=== PATIENT | female | born 1980 | race Two or more races ===

== ENCOUNTER 2017-05-27 15:36 | Emergency (ER) | payer SELFPAY ==
[~2017-05-27] VITALS: Ht 162.6 cm; Wt 81.6 kg
[2017-05-27 16:05] VITALS: BP 100/69
[2017-05-27] MEDS ORDERED: diphenhydrAMINE 50 MG/ML VIAL IVP ONE (16:15)
[2017-05-27] MEDS ORDERED: IV NORMAL SALINE 1000ML BAG 1,000 ML IV ONE (16:15)
[2017-05-27] MEDS ORDERED: PROCHLORPERAZINE 10 MG/2 ML VIAL. IV ONE (16:15)
[2017-05-27 16:31] LABS: BASO % 1 % (0-3); EOS % 1 % (0-3); HEMATOCRIT 27.2 % (36.0-47.0); HEMOGLOBIN 8.5 g/dL (12.0-15.5); LYMPH # 2.1 x10^3/uL (1.0-4.8); LYMPH % 40 % (24-48); MEAN CORPUSCULAR HEMOGLOBIN 23 pg (25-35); MEAN CORPUSCULAR HGB CONC 31 g/dL (31-37); MEAN CORPUSCULAR VOLUME 73 fL (79-100); MONO % 7 % (0-9); NEUT % 52 % (31-73); PLATELET COUNT 249 x10^3/uL (140-400); RED BLOOD COUNT 3.72 x10^6/uL (3.50-5.40); RED CELL DISTRIBUTION WIDTH 16.3 % (11.5-14.5); WHITE BLOOD COUNT 5.2 x10^3/uL (4.0-11.0)
[2017-05-27 16:33] LABS: BILIRUBIN,URINE NEGATIVE (NEG); GLUCOSE,URINE NEGATIVE (NEG); NITRITE,URINE NEGATIVE (NEG); PROTEIN,URINE NEGATIVE (NEG-TRACE); UROBILINOGEN,URINE 0.2 mg/dL (0.2 mg/dL)
[2017-05-27 16:36] LABS: NEG OBC UR NEG; POS OBC UR POS
--- NOTE | 2017-05-27 16:36 | PHYS DOC ---
Past Medical History Past Medical History: Hypothyroid Additional Past Medical Histor: HEADACHES Past Surgical History: , Tubal ligation Alcohol Use: None Drug Use: None Adult General Chief Complaint Chief Complaint: HEADACHE HPI HPI Patient is a 36 year old female with history of migraine headaches who presents today with with a 6 out of 10 posterior and frontal headache that began 2 days ago. Patient is also complaining of nausea vomiting and photophobia. Patient is also complaining of tingling on her left upper extremity and left lower extremity intermittently since this morning, patient denies any trauma. Patient denies this being the worst headache in her life but states this headache is different from her normal migraine headaches. Review of Systems Review of Systems Constitutional: Denies fever or chills [] Eyes: Denies change in visual acuity, redness, or eye pain [] HENT: Denies nasal congestion or sore throat [] Respiratory: Denies cough or shortness of breath [] Cardiovascular: No additional information not addressed in HPI [] GI: nausea, vomiting, : Denies dysuria or hematuria [] Musculoskeletal: Denies back pain or joint pain [] Integument: Denies rash or skin lesions [] Neurologic: headache, Endocrine: Denies polyuria or polydipsia [] Current Medications Current Medications Current Medications Medications (Trade) Dose Ordered Sig/Leena Start Time Stop Time Status Last Admin Dose Admin Ceftriaxone Sodium 50 ml @ 100 mls/hr 1X ONCE 05/27/17 17:15 05/27/17 17:44 Diphenhydramine HCl (Benadryl) 25 mg 1X ONCE 05/27/17 16:15 05/27/17 16:16 DC 05/27/17 17:03 25 MG Ketorolac Tromethamine (Toradol) 30 mg 1X ONCE 05/27/17 17:15 05/27/17 17:16 DC Prochlorperazine Edisylate (Compazine) 10 mg 1X ONCE 05/27/17 16:15 05/27/17 16:16 DC 05/27/17 17:03 10 MG Sodium Chloride 1,000 ml @ 1,000 mls/hr 1X ONCE 05/27/17 16:15 05/27/17 17:14 DC 05/27/17 17:03 1,000 MLS/HR Allergies Allergies Allergies Coded Allergies Type Severity Reaction Last Updated Verified No Known Drug Allergies 07/31/14 No Physical Exam Physical Exam Constitutional: Well developed, well nourished, no acute distress, non-toxic appearance. [] HENT: Normocephalic, atraumatic, bilateral external ears normal, oropharynx moist, no oral exudates, nose normal. [] Eyes: PERRLA, EOMI, conjunctiva normal, no discharge. [] Neck: Normal range of motion, no tenderness, supple, no stridor. [] Cardiovascular:Heart rate regular rhythm, no murmur [] Lungs & Thorax: Bilateral breath sounds clear to auscultation [] Abdomen: Bowel sounds normal, soft, no tenderness, no masses, no pulsatile masses. [] Skin: Warm, dry, no erythema, no rash. [] Back: No tenderness, no CVA tenderness. [] Extremities: No tenderness, no cyanosis, no clubbing, ROM intact, no edema. [] Neurologic: Alert and oriented X 3, normal motor function, normal sensory function, no focal deficits noted. Cranial nerves II-XII intact Psychologic: Affect normal, judgement normal, mood normal. [] Current Patient Data Vital Signs Vital Signs Date Time Temp Pulse Resp B/P (MAP) Pulse Ox O2 Delivery O2 Flow Rate FiO2 05/27/17 16:05 98.2 68 18 100/69 (79) 98 Room Air 98.2 Lab Values Laboratory Tests Test 05/27/17 16:10 05/27/17 16:22 Urine Test Negative (NEG) White Blood Count 5.2 x10^3/uL (4.0-11.0) Red Blood Count 3.72 x10^6/uL (3.50-5.40) Hemoglobin 8.5 g/dL (12.0-15.5) L Hematocrit 27.2 % (36.0-47.0) L Mean Corpuscular Volume 73 fL (79-100) L Mean Corpuscular Hemoglobin 23 pg (25-35) L Mean Corpuscular Hemoglobin Concent 31 g/dL (31-37) Red Cell Distribution Width 16.3 % (11.5-14.5) H Platelet Count 249 x10^3/uL (140-400) Neutrophils (%) (Auto) 52 % (31-73) Lymphocytes (%) (Auto) 40 % (24-48) Monocytes (%) (Auto) 7 % (0-9) Eosinophils (%) (Auto) 1 % (0-3) Basophils (%) (Auto) 1 % (0-3) Neutrophils # (Auto) 2.7 x10^3uL (1.8-7.7) Lymphocytes # (Auto) 2.1 x10^3/uL (1.0-4.8) Monocytes # (Auto) 0.3 x10^3/uL (0.0-1.1) Eosinophils # (Auto) 0.1 x10^3/uL (0.0-0.7) Basophils # (Auto) 0.0 x10^3/uL (0.0-0.2) Platelet Estimate Adequate (ADEQUATE) Hypochromasia Slight Anisocytosis Slight Microcytosis Mod Urine Collection Type Void Urine Color Yellow Urine Clarity Clear Urine pH 7.0 Urine Specific [place] 1.020 Urine Protein Negative mg/dL (NEG-TRACE) Urine Glucose (UA) Negative mg/dL (NEG) Urine Ketones (Stick) Negative mg/dL (NEG) Urine Blood Large (NEG) Urine Nitrite Negative (NEG) Urine Bilirubin Negative (NEG) Urine Urobilinogen Dipstick 0.2 mg/dL (0.2 mg/dL) Urine Leukocyte Esterase Moderate (NEG) Urine RBC Rare /HPF (0-2) Urine WBC 5-10 /HPF (0-4) Urine Squamous Epithelial Cells Many /LPF Urine Bacteria Mod /HPF (0-FEW) Urine Mucus Marked /LPF Sodium Level 140 mmol/L (136-145) Potassium Level 3.7 mmol/L (3.5-5.1) Chloride Level 104 mmol/L (98-107) Carbon Dioxide Level 29 mmol/L (21-32) Anion Gap 7 (6-14) Blood Urea Nitrogen 11 mg/dL (7-20) Creatinine 0.8 mg/dL (0.6-1.0) Estimated GFR (Cockcroft-Gault) 80.3 Glucose Level 102 mg/dL (70-99) H Calcium Level 9.8 mg/dL (8.5-10.1) Laboratory Tests 05/27/17 16:22 Laboratory Tests 05/27/17 16:22 EKG EKG [] Radiology/Procedures Radiology/Procedures [] Course & Med Decision Making Course & Med Decision Making Pertinent Labs and Imaging studies reviewed. (See chart for details) This is a 36-year-old female patient who presents today with a headache, nausea , vomiting and tingling to the left upper and lower extremities that began 2 days ago. She has history of migraine headaches but stats this headache is different from her normal headaches. CT of the head was negative for any acute findings. CBC with hemoglobin of 8.5, hematocrit 27.2, patient states she has heavy menstrual cycles, patient was instructed to consider taking over-the- counter vitamins with iron and consider f/u with an OBGYN. BMP with no acute findings. Urine positive for UTI. Patient was given 1 L of IV fluid Toradol and Compazine and Benadryl with good relief of her symptoms. She was given Rocephin for UTI discharged with cephalexin. She states she has an appointment with her PCP in 2 weeks. She'll be discharged with Ultram for pain and promethazine for nausea or vomiting. Provided return precautions and discharged in stable condition. Dragon Disclaimer Dragon Disclaimer This electronic medical record was generated, in whole or in part, using a voice recognition dictation system. Departure Departure Impression: Primary Impression: Migraine headache Additional Impressions: Urinary tract infection Anemia, iron deficiency Disposition: 01 HOME, SELF-CARE Condition: STABLE Referrals: NO PCP (PCP) follow up with your doctor in 2 weeks Patient Instructions: Iron Deficiency Anemia, Migraine Headache, Urinary Tract Infection Additional Instructions: You were seen for migraine headache. He also tested positive for UTI. We put you on antibiotics, ensure you complete them. Take pain medicine as needed. Come back to the ED at any point symptoms worsen. Follow-up with your doctor in 2 weeks as scheduled. Scripts Cephalexin (CEPHALEXIN) 500 Mg Tablet 1 TAB PO BID, #14 TAB Prov: MUTUNGASYLVIA [employer] 05/27/17 Promethazine Hcl (PROMETHAZINE HCL) 25 Mg Tablet 1 TAB PO PRN Q6HRS, #20 TAB Prov: MUTUNGA,SYLVIA [employer] 05/27/17 Tramadol Hcl (ULTRAM) 50 Mg Tablet 1 TAB PO Q6HRS, #30 TAB Prov: MUTUNGA,SYLVIA [employer] 05/27/17 Problem Qualifiers Primary Impression: Migraine headache Migraine type: without aura Status migrainosus presence: without status migrainosus Intractability: not intractable Qualified Codes: G43.009 - Migraine without aura, not intractable, without status migrainosus Additional Impressions: Urinary tract infection Urinary tract infection type: site unspecified Hematuria presence: without hematuria Qualified Codes: N39.0 - Urinary tract infection, site not specified Anemia, iron deficiency Iron deficiency anemia type: unspecified iron deficiency Qualified Codes: D50.9 - Iron deficiency anemia, unspecified SYLVIA YOUNGBLOOD APRN May 27, 2017 16:36
[2017-05-27 16:39] LABS: BACTERIA,URINE MOD /HPF (0-FEW); RBC,URINE RARE /HPF (0-2); SQUAMOUS EPITHELIAL CELL,UR MANY /LPF
[2017-05-27 16:45] LABS: CALCIUM 9.8 mg/dL (8.5-10.1); CREATININE 0.8 mg/dL (0.6-1.0); GFR 80.3; POTASSIUM 3.7 mmol/L (3.5-5.1)
--- NOTE | 2017-05-27 16:50 | RAD ---
CT head without contrast 05/27/2017 at 1635 hours Indication: Headache Comparison: None available Technique: Multiple axial CT images of the head were obtained from the skull base through the vertex without intravenous contrast. Findings: The ventricles, sulci and basal cisterns are normal in appearance. There is no hydrocephalus. There is no acute intracranial hemorrhage. Normal reilly-white matter differentiation is preserved. There is no mass, mass effect or midline shift. Visualized orbits are normal. Paranasal sinuses and mastoid air cells are well aerated. Scalp and calvarium are normal. No acute calvarial fracture. Impression: No acute intracranial abnormality. PQRS Compliance Statement: One or more of the following individualized dose reduction techniques were utilized for this examination: 1. Automated exposure control 2. Adjustment of the mA and/or kV according to patient size 3. Use of iterative reconstruction technique
[2017-05-27 17:00] LABS: ANISOCYTOSIS SLIGHT; HYPOCHROMIA SLIGHT; MICROCYTOSIS MOD; PLT ESTIMATE ADEQUATE (ADEQUATE)
[2017-05-27] MEDS ORDERED: KETOROLAC TROMETHAMINE 30 MG/ML INJ. IV ONE (17:15)
[2017-05-27] MEDS ORDERED: TRAM-48 PO (17:39)
[2017-05-27] MEDS ORDERED: CEPH500T PO (17:39)
[2017-05-27] MEDS ORDERED: PROM25TA10 PO (17:39)
== END 2017-05-27 18:33 | disposition home or self-care (01) ==
LOC: ER 15:36
DX: G43.909 Migraine, unspecified, not intractable, without status migrainosus (principal); N39.0 Urinary tract infection, site not specified; D50.9 Iron deficiency anemia, unspecified; E03.9 Hypothyroidism, unspecified
CPT/HCPCS: 36415; 70450; 80048; 81001; 81025; 85007; 85027; 96361; 96365; 96375; 99285; J0690; J0780; J1200; J1885; J7030